=== PATIENT | female | born 1945 | race Caucasian/White ===

== ENCOUNTER 2017-09-27 14:40 | Emergency (ER) | payer MEDICARE ==
[2017-09-27 14:48] VITALS: BP 175/62
--- NOTE | 2017-09-27 15:21 | UC ---
Hip/Pelvis Pain - HPI Summary HPI Summary: SEVERAL WEEKS OF LEFT HIP PAIN. SAW DR. POPE AND HAD XRAYS TAKEN 09/16/17. DX WITH OA AND GIVEN TYLENOL. PT REPORTS PAIN IS WORSENING. NO NUMBNESS/ TINGLING OR SADDLE ANESTHESIA. IS HAVING DIFFICULTY WALKING DUE TO THE PAIN. NO SWELLING OR BRUISING. NO TRAUMA. NO PREVIOUS INJURY/SURGERY TO HIP. - History Of Current Complaint Chief Complaint: UCLowerExtremity Stated Complaint: HIP PAIN Time Seen by Provider: 09/27/17 14:52 Hx Obtained From: Patient Onset/Duration: Gradual Onset, Lasting Weeks, Still Present Timing: Constant Severity Initially: Moderate Severity Currently: Moderate Pain Intensity: 10 Pain Scale Used: 0-10 Numeric Location: Discrete At: - LEFT HIP Character Of Pain: Sharp Aggravating Factor(s): Movement Alleviating Factor(s): Rest, Position - BETTER WHEN SUPINE Associated Signs And Symptoms: Negative: Swelling, Redness, Bruising, Fever, Weakness, Dizziness, Syncope, Abdominal Pain - Allergies/Home Medications Allergies/Adverse Reactions: Allergies Allergy/AdvReac Type Severity Reaction Status Date / Time No Known Allergies Allergy Verified 09/27/17 14:49 PMH/Surg Hx/FS Hx/Imm Hx Endocrine History: Diabetes Cardiovascular History: Hypertension Other History Of: Anticoagulant Therapy - ASA - Surgical History Surgical History: None Surgery Procedure, Year, and Place: UNSURE - Family History Known Family History: Positive: Hypertension - Social History Alcohol Use: Rare Substance Use Type: None Smoking Status (MU): Never Smoked Tobacco Review of Systems Constitutional: Negative Skin: Negative Respiratory: Negative Cardiovascular: Negative Gastrointestinal: Negative Musculoskeletal: Arthralgia, Decreased ROM All Other Systems Reviewed And Are Negative: Yes Physical Exam Triage Information Reviewed: Yes Appearance: Well-Appearing, No Pain Distress, Well-Nourished Vital Signs: Initial Vital Signs Temp 97.8 F 09/27/17 14:45 Pulse 69 09/27/17 14:45 Resp 12 09/27/17 14:45 BP 175/62 09/27/17 14:45 Pulse Ox 100 09/27/17 14:45 Vital Signs Reviewed: Yes Eyes: Positive: Conjunctiva Clear ENT: Positive: Hearing grossly normal Neck: Positive: Supple Respiratory: Positive: No respiratory distress, No accessory muscle use Cardiovascular: Positive: Pulses Normal Abdomen Description: Positive: Soft Musculoskeletal: Positive: No Edema, ROM Limited @ - LEFT HIP, Other: - TENDER OVER SCIATIC NOTCH Neurological: Positive: Alert Psychological: Positive: Age Appropriate Behavior Skin: Negative: rashes Hip Injury Course/Dx - Course Course Of Treatment: LEFT HIP XRAYS TAKEN 09/16/17 REVIEWED. MILD OSTEOARTHRITIS. PT ONLY TAKING TYLENOL WHICH IS NOT HELPING SX. NO NUMBNESS/ TINGLING, SADDLE ANESTHESIA. NO TRAUMA, SWELLING, REDNESS OF SKIN. PAIN MOSTLY WITH FLEXION AND EXTENSION. WILL GIVE VICODIN AND REFER TO ORTHO. PT TO CALL FOR APPT IN NEXT 2 DAYS. TO ER WITHOUT FAIL IF SX WORSEN. - Differential Dx/Diagnosis Provider Diagnoses: LEFT HIP PAIN Discharge - Discharge Plan Condition: Stable Disposition: HOME Prescriptions: HYDROcodone/ACETAMIN 5-325 MG* [[place] 5-325 TAB*] 1 tab PO Q6H PRN #20 tab MDD 4 PRN Reason: Pain Patient Education Materials: Osteoarthritis (ED), Hip Pain (ED) Referrals: Baljit Pope MD [Primary Care Provider] - If Needed Timoteo Lal MD [Medical Doctor] - 2 Days Additional Instructions: WILL GIVE HYDROCODONE TO HELP MANAGE YOUR PAIN. CALL ORTHO FIRST THING TOMORROW MORNING FOR AN APPT. GO TO THE ER WITHOUT FAIL IF YOUR PAIN WORSENS, YOU DEVELOP NUMBNESS, TINGLING, LOSS OF BOWEL/BLADDER CONTROL OR ANY OTHER CONCERNING SYMPTOMS.
== END 2017-09-27 15:48 | disposition home or self-care (01) ==
LOC: UCEAST 14:40
DX: M25.552 Pain in left hip (principal); Z79.82 Long term (current) use of aspirin
CPT/HCPCS: 99212; G0463

== ENCOUNTER 2017-09-30 13:23 | Emergency (ER) | payer MEDICARE ==
[2017-09-30] MEDS ORDERED: cloNIDine TAB* 0.1 MG PO ONE (16:13)
--- NOTE | 2017-09-30 16:30 | RAD ---
INDICATION: LEFT leg pain for over a month. COMPARISON: September 16, 2017 lumbar sacral spine radiographs. TECHNIQUE: Multidetector CT images were obtained from the lung bases to the ischial tuberosities. Evaluation of the viscera is limited without IV contrast. Multiplanar reformation. REPORT: Unremarkable visualized inferior thorax. Small hiatal hernia. Negative for CT abnormality of the remainder of the upper GI, small bowel loops, infra cecal appendix, colon. Negative for ascites, free air, hernias. Normal adrenal glands. Negative for urolithiasis or hydronephrosis. No conspicuous focal renal lesions. Unremarkable nondilated ureters and urinary bladder. Unremarkable rightward deviated uterus and adnexal regions. Negative for lymphadenopathy. Atherosclerotic calcification of normal diameter abdominal aorta and iliac arteries. Largely decompressed inferior vena cava indicating lower volume state. Negative for suspicious focal osseous lesions. Bilateral sacroiliitis with subchondral sclerosis at the iliac margins. Lumbar sacral spine degenerative spondylosis and facet joint osteoarthritis most prominent at L4-L5 with there is severe disc space narrowing without significant change. Negative for significant acquired central canal stenosis. Degenerative spondylosis and posterior element osteoarthritis results in mild RIGHT and moderate LEFT foraminal stenosis at L4-L5. Mild foraminal stenosis also noted bilaterally at L3-L4 and L5-S1. IMPRESSION: 1. No acute abdominal pelvic visceral pathologic process evident. 2. Chronic bilateral sacroiliitis. 3. Degenerative spondylosis and posterior element osteoarthritis results in mild RIGHT and moderate LEFT foraminal stenosis at L4-L5. Mild foraminal stenosis also noted bilaterally at L3-L4 and L5-S1.
--- NOTE | 2017-09-30 16:48 | RAD ---
Indication: LEFT leg pain. No palpable pulse at the foot. Comparison: No relevant prior exams available on the [facility] PACS for comparison. Technique: Arterial ultrasound LEFT lower extremity. Report: Triphasic waveform arterial flow documented at the common femoral artery peak systolic velocity 130 cm/s, profunda femoral artery peak systolic velocity 68 cm/s, proximal, mid, and distal segments of the superficial femoral artery 81, 107, and 103 cm/s respectively. Arterial flow with triphasic waveforms documented at the popliteal artery with 71 cm/s peak systolic velocity. Antegrade flow documented at the posterior tibial artery with monophasic waveform and peak systolic velocity of 26 cm/s. Antegrade flow with triphasic waveform and 68 cm/s peak systolic velocity documented at the peroneal artery and 71 cm/s documented at the anterior tibial artery. IMPRESSION: Degradation of peak systolic velocity and waveform at the posterior tibial artery. In contrast the remaining LEFT lower extremity arteries demonstrate normal waveform and flow velocities without suggestion of hemodynamic significant inflow disease.
[2017-09-30 16:55] VITALS: BP 157/54
--- NOTE | 2017-09-30 20:48 | ED ---
Terrance Vizcarra Nilda, scribed for Yaya Louis MD on 09/30/17 at 1525 . Lower Extremity - HPI Summary HPI Summary: This patient is a 71 year old F presenting to [facility] accompanied by with a chief complaint of exacerbated diffuse LLE pain today. Pt states the pain has been constant for over a month and is worse from the hip to knee. Per , pt visited orthopedist who took XRays of area. Four days ago, pt visited [facility] [place] with [place] and was told to visit ED if LLE pain worsened. The patient rates the pain 10/10 in severity. Symptoms aggravated by ambulation and alleviated by nothing including Dubberly. Patient reports mild back pain and LLE weakness when ambulating. Patient denies recent falls or trauma to LLE. PMHx includes DM, CVA (speech), NE, HLD, and HTN. The patient denies bowel or bladder intcontinence. She states the pain in her left leg is worse with standing and sitting and better with laying down. - History of Current Complaint Chief Complaint: EDExtremityLower Stated Complaint: LT LEG PAIN Time Seen by Provider: 09/30/17 15:23 Hx Obtained From: Patient, Family/Tongue Stitcher - Mechanism Of Injury: Unknown Onset of Pain: Days - over 1 month Onset/Duration: Still Present Severity Currently: Severe Pain Intensity: 10 Pain Scale Used: 0-10 Numeric Timing: Constant Location: Is Diffuse Character Of Pain: Spasmodic Associated Signs And Symptoms: Positive: Other - mild back pain and LLE weakness when ambulating. Patient denies recent falls or trauma to LLE. Aggravating Factor(s): Ambulation, Other Alleviating Factor(s): Rest - Allergies/Home Medications Allergies/Adverse Reactions: Allergies Allergy/AdvReac Type Severity Reaction Status Date / Time No Known Allergies Allergy Verified 09/30/17 13:32 PMH/Surg Hx/FS Hx/Imm Hx Endocrine/Hematology History: Reports: Hx Anticoagulant Therapy - ASA, Hx Diabetes - TYPE II- ON INSULIN FOR Cardiovascular History: Reports: Hx Angina, Hx Hypercholesterolemia, Hx Hypertension - ON MEDICATION FOR, Hx Myocardial Infarction Denies: Hx Pacemaker/ICD Musculoskeletal History: Reports: Hx Arthritis - RIGHT HAND, Other Musculoskeletal History - RIGHT LEG SWELLING- BEING FOLLOWED BY DR. POPE Denies: Hx Osteoporosis Sensory History: Reports: Hx Cataracts - BILATERAL, Hx Contacts or Glasses - GLASSES, Hx Glaucoma - BILATERAL Denies: Hx Hearing Aid Opthamlomology History: Reports: Hx Cataracts - BILATERAL, Hx Contacts or Glasses - GLASSES, Hx Glaucoma - BILATERAL Neurological History: Reports: Hx CVA - Cancer History Hx Chemotherapy: No Hx Radiation Therapy: No - Surgical History Surgery Procedure, Year, and Place: UNSURE Hx Anesthesia Reactions: No Infectious Disease History: No Infectious Disease History: Denies: Traveled Outside the [place] in Last 30 Days - Family History Known Family History: Positive: Hypertension, Diabetes - Social History Lives: With Family Alcohol Use: Rare Hx Substance Use: No Substance Use Type: Reports: None Hx Tobacco Use: No Smoking Status (MU): Never Smoked Tobacco Review of Systems Positive: Other - negative recent falls or trauma Positive: Other - LLE pain, mild back pain, LLE weakness when ambulating All Other Systems Reviewed And Are Negative: Yes Physical Exam Triage Information Reviewed: Yes Vital Signs On Initial Exam: Initial Vitals Temp Pulse Resp BP Pulse Ox 97.0 F 67 14 207/75 100 09/30/17 13:27 09/30/17 13:27 09/30/17 13:27 09/30/17 13:27 09/30/17 13:27 Vital Signs Reviewed: Yes Appearance: Positive: Well-Appearing, No Pain Distress Skin: Positive: Warm, Skin Color Reflects Adequate Perfusion Head/Face: Positive: Normal Head/Face Inspection Eyes: Positive: EOMI, LUCAS ENT: Positive: Normal ENT inspection Respiratory/Lung Sounds: Positive: Clear to Auscultation, Breath Sounds Present , Other Cardiovascular: Positive: RRR, Pulses are Symmetrical in both Upper and Lower Extremities - no palpable pulse in the left foot; pulses are palpable in the right foot.. Negative: Murmur Abdomen Description: Positive: Nontender. Negative: Distended Musculoskeletal: Positive: Strength/ROM Intact Neurological: Positive: Sensory/Motor Intact, Alert, Oriented to Person Place, Time, CN Intact II-III, Normal Gait, Speech Normal Psychiatric: Positive: Normal - Amrit Coma Scale Best Eye Response: 4 - Spontaneous Best Motor Response: 6 - Obeys Commands Best Verbal Response: 5 - Oriented Diagnostics - Vital Signs Vital Signs Temp Pulse Resp BP Pulse Ox 09/30/17 15:04 98.8 F 72 16 185/80 100 09/30/17 13:27 97.0 F 67 14 207/75 100 - Laboratory Lab Statement: Any lab studies that have been ordered have been reviewed, and results considered in the medical decision making process. - CT Abd/Pel CT Interpretation Completed By: Radiologist - 1. No acute abdominal pelvic visceral pathologic process evident. 2. Chronic bilateral sacroiliitis. 3. Degenerative spondylosis and posterior element osteoarthritis results in mild RIGHT and moderate LEFT foraminal stenosis at L4-L5. Mild foraminal stenosis also noted bilaterally at L3-L4 and L5-S1. ED physician has reviewed this radiology report and agrees. - Additional Comments Diagnostic Additional Comments: Duplex Scan Lower Extremity Artery, per radiologist, reveals: Degradation of peak systolic velocity and waveform at the posterior tibial artery. In contrast the remaining LEFT lower extremity arteries demonstrate normal waveform and flow velocities without suggestion of hemodynamic significant inflow disease. ED physician has reviewed this radiology report and agrees. Lower Extremity Course/Dx - Course Assessment/Plan: This patient is a 71 year old F presenting to [facility] accompanied by with a chief complaint of exacerbated diffuse LLE pain today. Pt states the pain has been constant for over a month and is worse from the hip to knee. Per , pt visited orthopedist who took XRays of area. Four days ago, pt went to [facility] [place] with same symptoms and was told to visit ED if LLE pain worsened. The patient rates the pain 10/10 in severity. Symptoms aggravated by ambulation and alleviated by nothing including Dubberly. Patient reports mild back pain and LLE weakness when ambulating. Patient denies recent falls or trauma to LLE. PMHx includes DM, CVA (speech), NE, HLD, and HTN. Pending CT Abd/Pel and VL lower extremity artery. Pt given clonidine in ED. CT Abd/Pel, per radiologist, reveals 1. No acute abdominal pelvic visceral pathologic process evident. 2. Chronic bilateral sacroiliitis. 3. Degenerative spondylosis and posterior element osteoarthritis results in mild RIGHT and moderate LEFT foraminal stenosis at L4-L5. Mild foraminal stenosis also noted bilaterally at L3-L4 and L5-S1. ED physician has reviewed this radiology report and agrees. Duplex Scan Lower Extremity Artery, per radiologist, reveals : Degradation of peak systolic velocity and waveform at the posterior tibial artery. In contrast the remaining LEFT lower extremity arteries demonstrate normal waveform and flow velocities without suggestion of hemodynamic significant inflow disease. ED physician has reviewed this radiology report and agrees. Dx. Lumbar spinal stenosis and HTN. Patient is stable and will be D/C home. Pt is agreeable with this plan. - Diagnoses Provider Diagnoses: Spinal stenosis of lumbar region with radiculopathy, Hypertension Discharge - Discharge Plan Condition: Good Disposition: HOME Patient Education Materials: Lumbar Spinal Stenosis (ED), Hypertension (ED) Referrals: Baljit Pope MD [Primary Care Provider] - David De La Rosa MD [Medical Doctor] - The documentation as recorded by the Terrance nance Nilda accurately reflects the service I personally performed and the decisions made by Heriberto moses Walter, MD.
== END 2017-09-30 17:39 | disposition home or self-care (01) ==
LOC: ED 13:23
DX: M48.061 Spinal stenosis, lumbar region without neurogenic claudication (principal); M54.10 Radiculopathy, site unspecified; I10 Essential (primary) hypertension
CPT/HCPCS: 74176; 99281; A9270-GY

== ENCOUNTER 2017-12-03 05:55 | Observation (INO) | payer MEDICARE ==
[~2017-12-03 05:55] MED LIST: Buffered Lidocaine 0.9% SYRIN* 5 ML/SYR SYRINGE INTRADERM ONE
[2017-12-03] MEDS ORDERED: Famotidine IV* 10 MG/ML 2 ML (20 mg) IV ONE (06:00)
[2017-12-03] MEDS ORDERED: Metoclopramide TAB* 10 MG PO ONE (06:00)
[2017-12-03] MEDS ORDERED: ceFAZolin 2 GM PREMIX (*) 2 GM/50 ML BAG IVPB ONE (06:22)
[2017-12-03] MEDS ORDERED: Buffered Lidocaine 0.9% SYRIN* 5 ML/SYR SYRINGE ONE (06:22)
[2017-12-03] MEDS ORDERED: Famotidine IV* 10 MG/ML 2 ML (20 mg) ONE (06:22)
[2017-12-03] MEDS ORDERED: Metoclopramide TAB* 10 MG ONE (06:22)
[2017-12-03] MEDS ORDERED: Insulin REGULAR(*) 1 UNITS UNIT ONE (07:06)
[2017-12-03] MEDS ORDERED: Thrombin 5,000 UNITS* 1 APPLIC KIT - topical use - TOPICAL ONE (07:17)
[2017-12-03] MEDS ORDERED: Bacitracin IV* 50,000 UNITS INJ ONE (07:17)
[2017-12-03] MEDS ORDERED: Lidocaine 1% MPF wEPI 200,000* 30 ML SDV ONE (07:17)
[2017-12-03] MEDS ORDERED: Cisatracurium* 2 MG/ML MDV 5 ML ONE (07:26)
[2017-12-03] MEDS ORDERED: Propofol* 10 MG/ML 20 ML BTL IV PUSH ONE (07:26)
[2017-12-03] MEDS ORDERED: Ondansetron INJ* 2 MG/ML VIAL ONE (07:26)
[2017-12-03] MEDS ORDERED: Dexamethasone IV* 4 MG/ML 1 ML (4 MG) ONE (07:26)
[2017-12-03] MEDS ORDERED: Midazolam* 1 MG/ML 10 ML VIAL (10 MG) ONE (07:26)
[2017-12-03] MEDS ORDERED: fentaNYL* 50 MCG/ML 2 ML VIAL (100 MCG VIAL) ONE (07:26)
[2017-12-03] MEDS ORDERED: Lidocaine 2% PF * 5 ML VIAL ONE (07:26)
[2017-12-03] MEDS ORDERED: KETAMINE HCL* 50 MG/ML 10 ML VIAL ONE (07:26)
[2017-12-03] MEDS ORDERED: Phenylephrine INJ* 10 MG/ML 1 ML VIAL (10 MG) ONE (07:26)
[2017-12-03] MEDS ORDERED: Artificial Tear OPHTH.OINT* 3.5 GM ONE (07:32)
[2017-12-03] MEDS ORDERED: EPHEDrine (Pressors)* 50 MG/ML VIAL ONE (09:09)
[2017-12-03] MEDS ORDERED: Ondansetron INJ* 2 MG/ML VIAL IV PRN ×2 (09:22→10:06)
[2017-12-03] MEDS ORDERED: Naloxone* 0.4 MG/ML 1 ML VIAL IV PRN (09:22)
[2017-12-03] MEDS ORDERED: fentaNYL* 50 MCG/ML 2 ML VIAL (100 MCG VIAL) IV PRN (09:22)
[2017-12-03] MEDS ORDERED: Acetaminophen IV 1GM/100ML * 1,000 MG/100 ML VIAL IVPB ONE (09:22)
[2017-12-03] MEDS ORDERED: Acetaminophen TAB* 325 MG PO PRN (10:06)
[2017-12-03] MEDS ORDERED: HYDROcodone/ACETAMIN 5-325 MG* 1 TAB PO PRN (10:06)
[2017-12-03] MEDS ORDERED: Magnesium Hydroxide LIQ* 30 ML UDC PO PRN (10:06)
[2017-12-03] MEDS ORDERED: Acetaminophen IV 1GM/100ML * 100 ML ONE (10:08)
--- NOTE | 2017-12-03 10:34 | RAD ---
INDICATION: Left lumbar discectomy COMPARISONS: None relevant TECHNIQUE: Fluoroscopy was provided for a surgical procedure. Total fluoroscopy time is: 18.1 seconds FINDINGS: Spot images demonstrate a metallic probe within the L4-L5 intervertebral disc space counting from L5 as the last lumbar type vertebral body. IMPRESSION: FLUOROSCOPY WAS PROVIDED FOR A SURGICAL PROCEDURE CPT II Codes: 6045F
[2017-12-03] MEDS ORDERED: Labetalol IV* 5 MG/ML 20 ML VIAL ONE (10:35)
[2017-12-03] MEDS ORDERED: Dextrose 50% Syringe 50 ML* 25 GM/50 ML SYRINGE IV PUSH PRN (12:37)
[2017-12-03] MEDS: Insulin LISPRO* 1 UNITS UNIT SUBCUT SCH (18:42)
[2017-12-03] MEDS: Metoprolol Tartrate TAB* 25 MG PO SCH (19:58)
[2017-12-03] MEDS ORDERED: Gabapentin CAP(*) 300 MG PO SCH (21:00)
[2017-12-03] MEDS ORDERED: Atorvastatin* 80 MG TAB PO SCH (21:00)
--- NOTE | 2017-12-03 21:15 | CONS ---
CC: Dr. Pope; Dr. Chavis.* CONSULTATION REPORT: DATE OF CONSULT: 12/03/17 PRIMARY CARE PROVIDER: Dr. Baljit Pope. MY ATTENDING PHYSICIAN WHILE IN THE HOSPITAL: Farhat Adame MD (report dictated by Ventura Casey NP). REASON FOR MEDICAL CONSULTATION: Evaluation of medical management of comorbid medical conditions. HISTORY OF PRESENT ILLNESS: Mrs. Chandler is a 72-year-old female patient with a fairly complex medical history. She presented to Dr. Chavis' services today for complaints of back pain. Ultimately was worked up on an outpatient setting, was found to have disk herniation at L4-L5 and underwent a L4-L5 discectomy today. She does carry a history of CVA. She has a history of carotid artery stenosis, history of MD, diabetes. She has a history of CAD, hypertension, hyperlipidemia, and also carries a history of atrial flutter. She presented today, underwent the discectomy with Dr. Chavis and we were asked to evaluate and consult. She was evaluated in the PACU. She said she is feeling well. She denies having any chest pain. She denies having any shortness of breath. She denies having any abdominal pain. She states that she does not feel nauseated. She states her pain is well controlled. She is not having any pain down her lower extremity. She denies having any chest discomfort or shortness of breath. But because of her complexity, we were asked to evaluate. PAST MEDICAL HISTORY: Significant for: 1. CVA. 2. History of MD. 3. Diabetes. 4. Hyperlipidemia. 5. Hypertension. 6. CAD. 7. AFlutter. 8. Left bundle-branch block. PAST SURGICAL HISTORY: She had an L4-L5 discectomy. ALLERGIES TO MEDICATIONS: Include GUANACO INHIBITORS. MEDICATIONS: Her home meds according to the preop list include: 1. Thiamine 100 mg daily. 2. Lopressor 25 mg p.o. b.i.d. 3. Cozaar 50 mg daily. 4. Lispro sliding scale 1 unit subcu t.i.d. 5. Lantus 20 units subcu at 2200. 6. Gabapentin 300 mg at bedtime. 7. Folic acid 1 mg daily. 8. Plavix 75 mg daily. 9. Vitamin D 1000 units p.o. daily. 10. Lipitor 20 mg daily. 11. Aspirin 325 mg daily. 12. Tylenol extra strength 500 mg p.o. every 6 hours. FAMILY HISTORY: Mother had a history of CAD and diabetes. Father had COPD. SOCIAL HISTORY: She does not smoke, does not drink. Surrogate decision maker is her . REVIEW OF SYSTEMS: There is no documented fever. She denied having any significant weight change. There was no double vision. There is no ear discharge. There was no rhinorrhea. No sore throat. No thyroid enlargement. She denied having any chest pain. No shortness of breath. No abdominal pain. No nausea, no vomiting, no dysuria. No frequency. There is no loss of consciousness. No pruritus and no skin ulcerations. Review of 14 systems was completed, all others negative. PHYSICAL EXAM: Vital Signs: Blood pressure 156/65, pulse 101, respirations 16 , O2 sat 94%, temperature 97.5. General: At this time, Mrs. Chandler is a 72- year-old female patient. She is sitting in the ED stretcher. She does not appear to be in any acute distress. HEENT: Head: Atraumatic, normocephalic. Eyes: EOMs intact. Sclerae anicteric and not pale. Neck: Supple. Throat: Oral mucosa appears to be moist. No oropharyngeal erythema. Heart: Sounds S1 , S2. Regular rate and rhythm. No murmurs, rubs, or gallops. Lungs: Clear to auscultation bilaterally. No wheezes, rales, or rhonchi. Abdomen: Soft, it was flat, nontender. Bowel sounds are present. Extremities: Pulses are 2+ throughout. She can move all extremities with 5/5 strength. She does have a little bit of right-sided residual weakness. Neurologically, she is awake, alert, oriented x3. She had no gross focal deficits with the exception that the right side is slightly weaker than the left. Her skin was intact. She has an incision to the midline spine. Lumbar area is clean, dry, and intact. DIAGNOSTIC STUDIES/LAB DATA: Preop WBC is 8.9, RBC of 4.42, hemoglobin of 13.2 , hematocrit of 39, platelet count of 298. The INR was 0.93. Sodium was 136, potassium 4.6, chloride 102, bicarb 29, BUN 14, creatinine of 0.76, glucose 130. She did have an echo, which did show multivessel distribution, wall motion abnormalities with moderate to severely reduced EF of 29% that was done in 2016. She had a Holter, which did show an episode of atrial flutter. EKG report from October 2017, normal sinus rhythm, left bundle-branch block. Old medical records were reviewed. ASSESSMENT AND PLAN: Mrs. Chandler is a 72-year-old female patient with a complex medical history, coming into the neurosurgical service today for an elective L4-L5 discectomy. We were asked to evaluate in consult. Recommendations at this point are: 1. Status post L4-L5 discectomy. I will defer the management to Dr. Chavis and team. 2. History of CVA. I would recommend getting her back on her aspirin and Plavix as soon as possible because of the history of carotid artery stenosis. Continue statin therapy and with the blood pressure little bit on the elevated side, I would not treat aggressively because of the known 80% stenosis in the left carotid. 3. History of MD and CAD. Again, get her back on her aspirin and statin when it is safe with Dr. Chavis, continue statin therapy and beta zelda for now. 4. Diabetes. Lispro sliding scale. Continue Lantus. 5. Hypertension. Again, at this point, I would try to keep her blood pressure on the high side because of the history of carotid artery stenosis, if she becomes hypotensive, she may again show neurological deficits, we are going to follow this closely. 6. Hyperlipidemia. Continue statin therapy. 7. History of atrial flutter. Again, there was one episode, I will defer the management to Dr. Pope, the patient's primary. I would, again, minimally continue with the aspirin, but at some point, may need to consider, if she has recurrent episodes, possibly anticoagulation, but that could be deferred to the outpatient team. 8. DVT prophylaxis: We will defer to Dr. Chavis. 9. Fluids, electrolytes, and nutrition: I would recommend a consistent carb diet. 10. Code status: Full code. TIME SPENT: Time spent on the consult was 60 minutes, greater than half that time was spent [id number] with the patient obtaining my history and physical, the other time was spent going over the plan of care with the patient and implementing the plan of care. I did discuss this with my attending, Dr. Adame; he is in agreement. VENTURA CASEY NP [id number]/[facility] #: [id number] [facility]ALTHAlberto
[2017-12-03] MEDS ORDERED: Insulin GLARGINE(*) 1 UNITS UNIT SUBCUT SCH (22:00)
[2017-12-04 05:51] LABS: Hematocrit 34 % (35-47); Hemoglobin 11.6 g/dl (12.0-16.0); Mean Corpuscular HGB Conc 34 g/dl (31-36); Mean Corpuscular Hemoglobin 30 pg (27-31); Mean Corpuscular Volume 88 fL (80-97); Mean Platelet Volume 10 um3 (7.4-10.4); Platelet Count 237 10^3/ul (150-450); Red Blood Count 3.85 10^6/ul (4.0-5.4); Red Cell Distribution Width 14 % (10.5-15)
[2017-12-04 06:00] LABS: ABS Basophils 0.1 10^3/ul (0-0.2); ABS Eosinophils 0 10^3/ul (0-0.6); ABS Lymphocytes 1.8 10^3/ul (1.0-4.8); ABS Monocytes 1.9 10^3/ul (0-0.8); ABS Neutrophils 14.2 10^3/ul (1.5-7.7); ABS Nucleated RBC 0 10^3/ul; Eosinophil % 0 % (0-6); Lymphocyte % 10.2 % (25-47); Nucleated Red Blood Cells % 0
[2017-12-04 06:05] LABS: EGFR Non-African American 66.8 (>60)
[2017-12-04] MEDS ORDERED: Cholecalciferol TAB* 1000 UNITS PO SCH (09:00)
[2017-12-04] MEDS ORDERED: Losartan TAB* 25 MG PO SCH (09:00)
[2017-12-04] MEDS ORDERED: Folic Acid TAB* 1 MG PO SCH (09:00)
[2017-12-04] MEDS: Metoprolol Tartrate TAB* 25 MG PO SCH (09:10)
[2017-12-04] MEDS: Insulin LISPRO* 1 UNITS UNIT SUBCUT SCH ×2 (10:11→13:30)
--- NOTE | 2017-12-04 11:31 | PN ---
Progress Note - Progress Note Date of Service: 12/04/17 SOAP: Subjective: []No events ON. Ambulates, Tolerates PO well, Voids. LLE pain almost resolved. LLE weakness improving per patient. Patient wants to go home. Objective: []AAOxe < LUCAS, Motor 5/5 except left HF, KE 4-/5, Left foot DF, EHL 4/5 Plantar flexion Sensory grossly intact to light touch, except left L4 dermatome which is improved compared to preop per patient. DTR +1 celeste Assessment: []72 yof POD#1 Left L4-5 lateral microdiscectomy Plan: []Monitor VS, Neurochecks. DC today if ok with IM. Will restart ASA in 2 days and plavix in 5 days, Discussed with Dr Pope at bedside, and he agrees with the plan. Appreciate IM input. Follow up in 7 days for wound check in office. Arnoldo Chavis MD
[2017-12-04] MEDS ORDERED: HYDROcodone/ACETAMIN 5-325 MG* 1 TAB PO PRN (11:55)
[2017-12-04 12:13] VITALS: BP 136/48
--- NOTE | 2017-12-04 13:56 | PN ---
Subjective Date of Service: 12/04/17 Interval History: Patient seen and examined at bedside. Denies fever, chills, shortness of breath , chest discomfort, N/V/D, or urinary symptoms. Family History: Unchanged from Admission Social History: Unchanged from Admission Past Medical History: Unchanged from Admission Objective Active Medications: Acetaminophen (Tylenol Tab*) 650 mg PO Q4H PRN Reason: PAIN Hydrocodone Bitart/Acetaminophen (Dover 5-325 Tab*) 1 tab PO Q4H PRN Reason: moderate pain Hydrocodone Bitart/Acetaminophen (Dover 5-325 Tab*) 2 tab PO Q4H PRN Reason: PAIN - MODERATE TO SEVERE Atorvastatin Calcium (Lipitor*) 80 mg PO BEDTIME [facility] Cholecalciferol (Vitamin D Tab*) 1,000 units PO QAM [facility] Dextrose (D50w Syringe 50 Ml*) 12.5 gm IV PUSH .FOR FS < 60 - SS PRN Reason: FS < 60 Folic Acid (Folvite Tab*) 1 mg PO QAM [facility] Gabapentin (Neurontin Cap(*)) 300 mg PO BEDTIME [facility] Lactated Ringer's (Lactated Ringers 1000 Ml Bag*) 1,000 mls @ 75 mls/hr IV .per rate [facility] Insulin Glargine (Lantus(*)) 20 units SUBCUT 2200 [facility] Insulin Human Lispro (Humalog*) 0 units SUBCUT AC [facility] Losartan Potassium (Cozaar Tab*) 50 mg PO QAM [facility] Magnesium Hydroxide (Milk Of Magnesia Liq*) 30 ml PO DAILY PRN Reason: CONSTIPATION Metoprolol Tartrate (Lopressor Tab*) 25 mg PO BID [facility] Ondansetron HCl (Zofran Inj*) 4 mg IV Q6H PRN Reason: NAUSEA/VOMITING Vital Signs - 8 hr 12/04/17 12/04/17 12/04/17 07:28 11:11 12:10 Temperature 98.2 F 98.7 F Pulse Rate 88 84 Respiratory 16 18 16 Rate Blood Pressure 124/50 136/48 (mmHg) O2 Sat by Pulse 97 99 Oximetry Oxygen Devices in Use Now: None Lines/Tubes/Other Access: Clean, Dry and Intact Peripheral IV - site benign Nutrition: Taking PO's Result Diagrams: 12/04/17 05:22 12/04/17 05:22 Assess/Plan/Problems-Billing Assessment: Ms. Chandler is a 72 yo female with PMH significant for CAD, MA, DM, HLD, HTN, CVA, aflutter and LBBB who presented to the hospital for an elective L4-[address] Chavis. - Patient Problems (1) Herniated nucleus pulposus, L4-5 left Code(s): M51.26 - OTHER INTERVERTEBRAL DISC DISPLACEMENT, LUMBAR REGION SNOMED Code(s): 54139161 Comment: - S/P L4-5 discectomy - Management per Neurosurgery - Continue pain control (2) Leukocytosis Code(s): D72.829 - ELEVATED WHITE BLOOD CELL COUNT, UNSPECIFIED SNOMED Code(s) : 524058816 Comment: - Suspect secondary to stress response - Denies fever, chills, cough or URI symptoms - Will check a UA (3) CVA (cerebral vascular accident) Code(s): I63.9 - CEREBRAL INFARCTION, UNSPECIFIED SNOMED Code(s): 872672906 Comment: - Resume ASA and plavix when ok with Neurosurgery (4) Hx of coronary artery disease Code(s): Z86.79 - PERSONAL HISTORY OF OTHER DISEASES OF THE CIRCULATORY SYSTEM SNOMED Code(s): 118056965 Comment: - Resume ASA when ok with Neurosurgery - Continue statin and betablocker (5) Diabetes Code(s): E11.9 - TYPE 2 DIABETES MELLITUS WITHOUT COMPLICATIONS SNOMED Code(s) : 14359105 Comment: - Continue Lantus and Lispro ss (6) HTN (hypertension) Code(s): I10 - ESSENTIAL (PRIMARY) HYPERTENSION SNOMED Code(s): 79593201 Comment: - Normotensive - Continue cozaar and lopressor (7) HLD (hyperlipidemia) Code(s): E78.5 - HYPERLIPIDEMIA, UNSPECIFIED SNOMED Code(s): 00765053 Comment: - Continue statin (8) Atrial flutter Code(s): I48.92 - UNSPECIFIED ATRIAL FLUTTER SNOMED Code(s): 6831767 Comment: - Continue ASA and metoprolol (9) DVT prophylaxis Code(s): JHH5747 - SNOMED Code(s): 323787406 Comment: - SCDs (10) Full code status Code(s): Z78.9 - OTHER SPECIFIED HEALTH STATUS SNOMED Code(s): 451248630 Status and Disposition: OBV. Discharge to home when medically stable.
[2017-12-04 15:11] LABS: Urine Appearance Clear; Urine Blood 1+ (Negative); Urine Color Straw; Urine Ketones Negative (Negative); Urine Protein Negative (Negative); Urine Urobilinogen Negative (Negative)
--- NOTE | 2017-12-04 21:05 | OP ---
DATE OF OPERATION: 12/03/17 - ROOM #335 DATE OF : 47 SURGEON: Juvencio Chavis MD SALES DEVELOPMENT REPRESENTATIVE: SHARYN Dee ANESTHESIOLOGIST: Dominguez Varner MD ANESTHESIA: General. PREOPERATIVE DIAGNOSIS: Left L4-5 far lateral disk herniation. POSTOPERATIVE DIAGNOSIS: Left L4-5 far lateral disk herniation. OPERATIVE PROCEDURE: The patient underwent left L4-5 minimal invasive diskectomy and foraminotomy. ESTIMATED BLOOD LOSS: 20 cc. COMPLICATIONS: None. SUMMARY: The patient is a very pleasant 72-year-old female with multiple medical problems including previous stroke, who was on aspirin and Plavix. She was experiencing back pain radiating to the left lower extremity with left lower extremity weakness. MRI findings revealed a far lateral left disk herniation. After failing conservative treatment, the patient was offered the option of left far lateral diskectomy. After explaining all expectations, limitations, possible complications of procedure to the patient and her with complications including but not limited to bleeding, infection, risk of injury to adjacent structures, coma, paralysis, , stroke, blindness, cancer , instability, spinal fluid leak, need for additional procedures, anesthesia risk. The patient and her were agreeable to proceeding with surgery. Informed consent was obtained. They also understood that her condition may not improve and in fact may get worse after surgery and she may need to have additional procedure in the future. DESCRIPTION OF PROCEDURE: The patient was brought to the operating room, was placed under general anesthesia by anesthesia team. She was carefully positioned prone on the Florentin frame on the Abdelrahman table and all bony prominences were meticulously padded. The skin was prepped and draped in the standard fashion and after appropriate surgical pause and the patient identification, the operative level was identified with use of intraoperative fluoroscopic imaging. A left paramedian 30 mm incision was made on the skin. After infiltrating the skin with local anesthetic, incision was carried down to the subcutaneous tissue and an incision to the dorsal fascia was performed. Over a series of dilators, a tubular 22 mm METRx retractable system was introduced into the field and the lateral aspect of L4-5 facet as well as the superior aspect of the L5 transverse process was readily identified. Intraoperative microscope was brought into the field and after detachment of paraspinal musculature with Bovie cautery, a high speed drill was used to perform a small lateral foraminotomy and resection of the lateral aspect of the facet in order to gain access into the disk space. This was also achieved with the use of Kerrison punches. A large disk herniation was readily identified and after retracting caudally the L4 nerve, the L4-5 disk space was identified and confirmed with intraoperative fluoroscopic imaging. A long 15 blade was used to perform an annulotomy and a standard diskectomy was performed with the use of pituitary rongeurs and curettes. At the end of the procedure, the nerve root was found to be free of any pressure phenomenon. After copious irrigation and confirmation with meticulous hemostasis, tubular retractor was gently removed and the skin was closed by layers with 0-interrupted Vicryl sutures for the dorsal fascia and 2-0 interrupted Vicryl sutures for the subcutaneous tissue. The skin was covered with Dermabond and sterile dressings. At the end of the procedure, all counts were reported to be correct. The patient remained hemodynamically stable throughout the case. She was then turned supine, was extubated and was transferred to Recovery in excellent condition and she was able to move all 4 extremities with improvement of her severe left lower extremity preoperative weakness. I was present and scrubbed for the entirety of the case. The procedure was performed with an assistant family teacher because of the complexity of the case. [id number]/[id number] #: [id number] JAMILA
== END 2017-12-04 15:55 | disposition home or self-care (01) ==
LOC: AA 05:55 → INTOOBSV 05:55 → SSU 13:16
PROVIDERS: ADMIT Neurological Surgery; ATTEND Neurological Surgery
PROC: 01NB0ZZ Release Lumbar Nerve, Open Approach (ICD-10-PCS; 2017-12-03)
PROC: 0SB20ZZ Excision of Lumbar Vertebral Disc, Open Approach (ICD-10-PCS; principal; 2017-12-03 07:45)
DX: M51.16 Intervertebral disc disorders with radiculopathy, lumbar region (principal); M47.26 Other spondylosis with radiculopathy, lumbar region; E13.42 Other specified diabetes mellitus with diabetic polyneuropathy; Z79.899 Other long term (current) drug therapy; D72.89 Other specified disorders of white blood cells; Z86.73 Personal history of transient ischemic attack (TIA), and cerebral infarction without residual deficits; I25.10 Atherosclerotic heart disease of native coronary artery without angina pectoris; I10 Essential (primary) hypertension; E78.5 Hyperlipidemia, unspecified; I48.92 Unspecified atrial flutter; I44.7 Left bundle-branch block, unspecified; I25.2 Old myocardial infarction; Z79.4 Long term (current) use of insulin; Z79.01 Long term (current) use of anticoagulants
CPT/HCPCS: 36415; 76001; 80048; 81003; 81015; 85025; 87086; A9270-GY; G0378; G8978-GP-CH; G8979-GP-CH; G8980-GP-CH; G8987-GO-CI; G8988-GO-CI; G8989-GO-CI; J0690; J1100; J2001; J2250; J2405; J2704; J3010

== ENCOUNTER 2023-12-02 11:22 | Inpatient (IN) ==
[2023-12-02 12:02] LABS: ABS Basophils 0.1 10^3/uL (0.0-0.1); ABS Eosinophils 0.1 10^3/uL (0.0-0.5); ABS Lymphocytes 2.4 10^3/uL (1.0-4.8); ABS Monocytes 0.8 10^3/uL (0.0-0.9); ABS Neutrophils 4.2 10^3/uL (1.5-7.6); ABS Nucleated RBC 0.01 10^3/ul; Eosinophil % 1.8 %; Hematocrit 34.2 % (35-45); Hemoglobin 11.4 g/dL (11.5-14.3); Lymphocyte % 31.5 %; Mean Corpuscular Hemoglobin 30.5 pg (27-33); Mean Corpuscular Hgb Conc 33.3 g/dL (31-36); Mean Corpuscular Volume 91.5 fL (80-97); Mean Platelet Volume 9.9 fL (7.5-11.2); Nucleated Red Blood Cells % 0.1 %/100WBC (0.0-0.8); Platelet Count 230 10^3/uL (150-450); Red Blood Count 3.74 10^6/uL (3.63-4.92); Red Cell Distribution Width 14.3 % (12-17); White Blood Count 7.5 10^3/uL (3.8-11.8)
[2023-12-02 13:13] LABS: Albumin 4.3 g/dL (3.2-5.2); Albumin/Globulin Ratio 1.4 (1-3); Calcium 9.6 mg/dL (8.6-10.3); Potassium 4.5 mmol/L (3.5-5.0); Total Bilirubin 1.2 mg/dL (0.2-1.0); Total Protein 7.3 g/dL (6.4-8.9)
[2023-12-02 13:24] LABS: INR 1.1 (0.83-1.13)
[2023-12-02 13:31] LABS: High Sensitivity Troponin 1 Hr 34 pg/mL (<15)
[2023-12-02 14:41] LABS: Magnesium 1.4 mg/dL (1.9-2.7)
[2023-12-02] MEDS ORDERED: Magnesium Sulfate 2 gm BAG 2 GM/50 ML BAG IVPB ONE ×2 (15:16→17:29)
[2023-12-02] MEDS ORDERED: Dextrose 50% Syringe 50 ml 25 GM/50 ML SYRINGE IV PUSH PRN (17:27)
[2023-12-02] MEDS: Enoxaparin 40 MG/0.4 ML SYR SUBCUT SCH (18:20)
[2023-12-03 06:08] LABS: ABS Basophils 0.1 10^3/uL (0.0-0.1); ABS Eosinophils 0.2 10^3/uL (0.0-0.5); ABS Lymphocytes 2.3 10^3/uL (1.0-4.8); ABS Monocytes 0.8 10^3/uL (0.0-0.9); ABS Neutrophils 3.4 10^3/uL (1.5-7.6); ABS Nucleated RBC 0.01 10^3/ul; Eosinophil % 2.4 %; Hematocrit 30.8 % (35-45); Hemoglobin 10.5 g/dL (11.5-14.3); Mean Corpuscular Hemoglobin 31.2 pg (27-33); Mean Corpuscular Hgb Conc 34.2 g/dL (31-36); Mean Corpuscular Volume 91.1 fL (80-97); Mean Platelet Volume 9.9 fL (7.5-11.2); Nucleated Red Blood Cells % 0.1 %/100WBC (0.0-0.8); Platelet Count 194 10^3/uL (150-450); Red Blood Count 3.38 10^6/uL (3.63-4.92); Red Cell Distribution Width 14.1 % (12-17); White Blood Count 6.8 10^3/uL (3.8-11.8)
[2023-12-03 06:26] LABS: Albumin 3.8 g/dL (3.2-5.2); Albumin/Globulin Ratio 1.5 (1-3); Calcium 9.1 mg/dL (8.6-10.3); Creatinine, Serum 0.86 mg/dL (0.51-0.95); Globulin 2.5 g/dL (2-4); Magnesium 2.2 mg/dL (1.9-2.7); Potassium 3.6 mmol/L (3.5-5.0); Total Bilirubin 0.9 mg/dL (0.2-1.0); Total Protein 6.3 g/dL (6.4-8.9); eGFR CKD-EPI 69.5 (>60)
[2023-12-03] MEDS: Aspirin EC 325 mg TAB.EC PO SCH (09:19)
[2023-12-03] MEDS ORDERED: Sulfur Hexaflouride MICROSPHR 25 MG VIAL ONE (10:01)
[2023-12-03] MEDS: Enoxaparin 40 MG/0.4 ML SYR SUBCUT SCH (16:54)
[2023-12-03 20:00] LABS: % Iron Saturation 19 % (15-55); .Transferrin 227 mg/dL (203-362); Iron 59 ug/dL (50-212); Total Iron Binding Capacity 318 mcg/dL (250-450); Unsaturated Iron Binding 259 ug/dL
[2023-12-03 20:19] LABS: Ferritin 67.3 ng/mL (11-307)
[2023-12-03 20:23] LABS: Folate > 20.00 ng/mL (5.90-24.80)
[2023-12-03 20:24] LABS: Vitamin B12 902 pg/mL (180-914)
[2023-12-04 06:47] LABS: ABS Eosinophils 0.3 10^3/uL (0.0-0.5); ABS Lymphocytes 2.6 10^3/uL (1.0-4.8); ABS Monocytes 0.9 10^3/uL (0.0-0.9); Hematocrit 32.3 % (35-45); Lymphocyte % 38.8 %; Mean Corpuscular Hemoglobin 30.9 pg (27-33); Mean Corpuscular Hgb Conc 34.1 g/dL (31-36); Mean Corpuscular Volume 90.8 fL (80-97); Mean Platelet Volume 9.7 fL (7.5-11.2); Nucleated Red Blood Cells % 0.1 %/100WBC (0.0-0.8); Platelet Count 193 10^3/uL (150-450); Red Blood Count 3.56 10^6/uL (3.63-4.92); Red Cell Distribution Width 14.1 % (12-17); White Blood Count 6.7 10^3/uL (3.8-11.8)
[2023-12-04 07:05] LABS: Creatinine, Serum 0.98 mg/dL (0.51-0.95); Magnesium 1.7 mg/dL (1.9-2.7); Potassium 3.6 mmol/L (3.5-5.0); eGFR CKD-EPI 59.4 (>60)
[2023-12-04] MEDS: Aspirin EC 325 mg TAB.EC PO SCH (10:03)
[2023-12-04] MEDS ORDERED: Ondansetron 4 mg VIAL 2 MG/ML 2 ml VIAL IV PRN (13:13)
[2023-12-04] MEDS: Enoxaparin 40 MG/0.4 ML SYR SUBCUT SCH (17:50)
[2023-12-05] MEDS: Aspirin EC 325 mg TAB.EC PO SCH (10:33)
[2023-12-05 11:02] LABS: Hematocrit 36.9 % (35-45); Hemoglobin 12.5 g/dL (11.5-14.3); Mean Corpuscular Hemoglobin 30.8 pg (27-33); Mean Corpuscular Hgb Conc 33.8 g/dL (31-36); Mean Corpuscular Volume 91.3 fL (80-97); Mean Platelet Volume 9.9 fL (7.5-11.2); Platelet Count 235 10^3/uL (150-450); Red Blood Count 4.05 10^6/uL (3.63-4.92); Red Cell Distribution Width 14.3 % (12-17); White Blood Count 8.1 10^3/uL (3.8-11.8)
[2023-12-05 11:18] LABS: Calcium 9.6 mg/dL (8.6-10.3); Creatinine, Serum 1.07 mg/dL (0.51-0.95); HDL Cholesterol 36.4 mg/dL; Magnesium 1.9 mg/dL (1.9-2.7); Potassium 4.3 mmol/L (3.5-5.0); eGFR CKD-EPI 53.5 (>60)
[2023-12-05] MEDS: Enoxaparin 40 MG/0.4 ML SYR SUBCUT SCH (17:00)
[2023-12-06] MEDS: Aspirin EC 325 mg TAB.EC PO SCH (09:11)
[2023-12-06] MEDS: Enoxaparin 40 MG/0.4 ML SYR SUBCUT SCH (18:07)
[2023-12-07] MEDS: Aspirin EC 325 mg TAB.EC PO SCH (07:46)
[2023-12-07 14:35] VITALS: BP 117/47
== END 2023-12-07 16:08 | disposition short-term general hospital (02) | DRG 293 ==
LOC: EDHOLD 11:22 → ED 11:22 → MEDTELE 16:47
PROVIDERS: ADMIT Student in an Organized Health Care Education/Training Program; ATTEND Student in an Organized Health Care Education/Training Program

== ENCOUNTER 2023-12-18 15:37 | Inpatient (IN) ==
[2023-12-18 16:07] LABS: ABS Basophils 0.1 10^3/uL (0.0-0.1); ABS Eosinophils 0.1 10^3/uL (0.0-0.5); ABS Lymphocytes 3.8 10^3/uL (1.0-4.8); ABS Monocytes 1.5 10^3/uL (0.0-0.9); ABS Neutrophils 6.2 10^3/uL (1.5-7.6); ABS Nucleated RBC 0.01 10^3/ul; Eosinophil % 0.6 %; Hematocrit 37.3 % (35-45); Hemoglobin 12.2 g/dL (11.5-14.3); Lymphocyte % 32.2 %; Mean Corpuscular Hgb Conc 32.8 g/dL (31-36); Mean Corpuscular Volume 91.3 fL (80-97); Mean Platelet Volume 9.6 fL (7.5-11.2); Nucleated Red Blood Cells % 0.1 %/100WBC (0.0-0.8); Platelet Count 220 10^3/uL (150-450); Red Blood Count 4.08 10^6/uL (3.63-4.92); Red Cell Distribution Width 13.6 % (12-17); White Blood Count 11.7 10^3/uL (3.8-11.8)
[2023-12-18 16:32] LABS: Albumin/Globulin Ratio 1.4 (1-3); Calcium 9.7 mg/dL (8.6-10.3); Creatinine, Serum 1.02 mg/dL (0.51-0.95); Globulin 2.9 g/dL (2-4); Total Bilirubin 0.6 mg/dL (0.2-1.0); Total Protein 6.9 g/dL (6.4-8.9); eGFR CKD-EPI 56.7 (>60)
[2023-12-18] MEDS ORDERED: Metoprolol Tartrate 5 mg VIAL 5 ml VIAL (1 mg/ml) IV PRN (18:12)
[2023-12-18] MEDS ORDERED: Ondansetron 4 mg VIAL 2 MG/ML 2 ml VIAL IV PRN (18:26)
[2023-12-18] MEDS ORDERED: Senna TAB 8.6 mg TAB PO PRN (18:26)
[2023-12-18] MEDS: Magnesium Sulfate 2 gm BAG 2 GM/50 ML BAG IVPB ONE ×2 (18:33→20:47)
[2023-12-18] MEDS: Metoprolol Tartrate 5 mg VIAL 5 ml VIAL (1 mg/ml) IV ONE (19:33)
[2023-12-18] MEDS: Lactated Ringers 1000 ml BAG 1,000 ML IV SCH (20:40)
[2023-12-19 08:03] LABS: ABS Basophils 0.1 10^3/uL (0.0-0.1); ABS Eosinophils 0.2 10^3/uL (0.0-0.5); ABS Lymphocytes 2.9 10^3/uL (1.0-4.8); ABS Monocytes 1.1 10^3/uL (0.0-0.9); ABS Nucleated RBC 0.01 10^3/ul; Eosinophil % 2.1 %; Hematocrit 31.1 % (35-45); Hemoglobin 10.5 g/dL (11.5-14.3); Lymphocyte % 35.5 %; Mean Corpuscular Hemoglobin 30.6 pg (27-33); Mean Corpuscular Hgb Conc 33.7 g/dL (31-36); Mean Corpuscular Volume 90.7 fL (80-97); Mean Platelet Volume 9.9 fL (7.5-11.2); Nucleated Red Blood Cells % 0.1 %/100WBC (0.0-0.8); Platelet Count 178 10^3/uL (150-450); Red Blood Count 3.43 10^6/uL (3.63-4.92); Red Cell Distribution Width 13.7 % (12-17); White Blood Count 8.3 10^3/uL (3.8-11.8)
[2023-12-19 08:22] LABS: Calcium 9.2 mg/dL (8.6-10.3); Creatinine, Serum 1.03 mg/dL (0.51-0.95); Magnesium 2.2 mg/dL (1.9-2.7); Potassium 3.9 mmol/L (3.5-5.0)
[2023-12-19] MEDS: Cholecalciferol (VIT D3) 1,000 unit TAB PO SCH (09:10)
[2023-12-19] MEDS ORDERED: Metoprolol Tartrate 5 mg VIAL 5 ml VIAL (1 mg/ml) IV PRN (09:26)
[2023-12-19] MEDS: Digoxin IV 0.5 MG/2 ML AMP (0.25 MG/ML) IV SLOW PU ONE (10:27)
[2023-12-19] MEDS: Digoxin IV 0.5 MG/2 ML AMP (0.25 MG/ML) IV SLOW PU SCH (16:43)
[2023-12-20] MEDS ORDERED: Dextrose 50% Syringe 50 ml 25 GM/50 ML SYRINGE IV PUSH PRN (08:29)
[2023-12-20 10:08] LABS: Calcium 9.3 mg/dL (8.6-10.3); Creatinine, Serum 0.93 mg/dL (0.51-0.95); Magnesium 1.5 mg/dL (1.9-2.7); Potassium 4.6 mmol/L (3.5-5.0); eGFR CKD-EPI 63.3 (>60)
[2023-12-20 10:51] LABS: TSH Ultra Thyroid Stim Horm 4.13 mcIU/mL (0.34-5.60)
[2023-12-20] MEDS: Magnesium Sulf 4 GM/100 ML IV 4,000 MG/100 ML BAG IVPB ONE (17:08)
[2023-12-21 06:49] LABS: ABS Basophils 0.1 10^3/uL (0.0-0.1); ABS Eosinophils 0.2 10^3/uL (0.0-0.5); ABS Lymphocytes 2.5 10^3/uL (1.0-4.8); ABS Monocytes 0.9 10^3/uL (0.0-0.9); ABS Neutrophils 3.2 10^3/uL (1.5-7.6); Eosinophil % 2.8 %; Hematocrit 32.3 % (35-45); Lymphocyte % 36.3 %; Mean Corpuscular Hemoglobin 30.7 pg (27-33); Mean Corpuscular Hgb Conc 34.1 g/dL (31-36); Mean Platelet Volume 9.8 fL (7.5-11.2); Platelet Count 190 10^3/uL (150-450); Red Blood Count 3.59 10^6/uL (3.63-4.92); Red Cell Distribution Width 13.7 % (12-17); White Blood Count 6.8 10^3/uL (3.8-11.8)
[2023-12-21 07:06] LABS: Calcium 9.3 mg/dL (8.6-10.3); Creatinine, Serum 0.86 mg/dL (0.51-0.95); Magnesium 2.4 mg/dL (1.9-2.7); Potassium 4.3 mmol/L (3.5-5.0); eGFR CKD-EPI 69.5 (>60)
[2023-12-21 14:22] VITALS: BP 104/50
== END 2023-12-21 14:50 | disposition home or self-care (01) | DRG 309 ==
LOC: EDHOLD 15:37 → ED 15:37 → SUATTDRO 17:59 → MEDTELE 19:09
PROVIDERS: ADMIT Internal Medicine; ATTEND Internal Medicine